=== PATIENT | female | born 2000 | race African-American/Black ===

== ENCOUNTER 2023-11-30 12:49 | Outpatient (AMB) | payer OTHER, SELFPAY ==
--- NOTE | 2023-11-30 13:59 | AM.OFFWIN_ITS ---
Intake Vital Signs 11/30/23 14:00 Height 5 ft 5 in Weight 239 lb BMI 39.8 BP 132/80 Blood Pressure Location Rt brachial Position Sitting Pulse 88 Pulse Source Pulse Oximeter Pulse Oximetry (%) 98 Oxygen Delivery Method Room Air Intake Visit Reasons: EST/bumps all over upper body(lobby) Intake Note: Pt is here c/o bumps underneath her breasts, above her breasts, bilateral armpits as well as on the groin area. Pt starts she has had this issue on and off for a few years. Pt states she was given antibiotics in High School but doesn't remember exactly what it was. Patient Tobacco Use Status: Never used Tobacco Allergies No Known Allergies Allergy (Verified 11/30/23 14:02) Medication List - Last Reconciled 11/30/23 by KENY Adams cephalexin 500 mg PO BID 10 days Do you need a note to return to daycare/school/sports/work: Yes HPI HPI Comments History of Present Illness Details 23 y/o female c/o multiple skin lesions on the inferior aspect of her breasts, and occasionally her axilla. She also has a habit of picking lesions resulting in erythema, swelling and discharge. She has been experiencing these symptoms for 5+ years, intermittently (monthly). [facility] Social History Patient Tobacco Use Status: Never used Tobacco Review of Systems Skin/Breast Reports lesions Physical Exam Vital Signs: Last Vital Signs Pulse 88 11/30/23 14:00 BP 132/80 11/30/23 14:00 Pulse Ox 98 11/30/23 14:00 Oxygen Delivery Method Room Air 11/30/23 14:00 BMI result Body Mass Index 39.8 Chest Other: lesions present in the central and inferior aspects of her right breast. Also areas of excoriation where she stated she picked Resp Effort & Inspection: normal respiratory effort Auscultation: clear to auscultation bilaterally Cardio Rate: regular rate Rhythm: regular rhythm Heart sounds: S1 normal heart sound present and S2 normal heart sound present Skin Lesions: lesion noted (inferior to right breasts and central ) Assessment & Plan Assessment & Plan (1) Abscess of skin: Code(s): L02.91 - Cutaneous abscess, unspecified Qualifiers: Site of cutaneous abscess: trunk Site of cutaneous abscess of trunk: chest wall Qualified Code(s): L02.213 - Cutaneous abscess of chest wall Plan: see plan Plan Cephalexin 500 Bid x 10 days and dermatology referral for retirement plan. F/U with PCP. Keep areas clean and use warm compresses twice daily. Orders: Referrals Dermatology Referral L02.91 - Cutaneous abscess, unspecified Medications: New cephalexin 500 mg PO BID 10 days 20 caps 0RF Coding Level of Care Code New Pt Level 3 (95109) Diagnoses Cutaneous abscess of chest wall L02.213 Site of cutaneous abscess: trunk Site of cutaneous abscess of trunk: chest wall Time Spent (min) 20
[2023-11-30 14:00] VITALS: BP 132/80; PULSE 88; O2SAT 98; BMI 39.8
== END 2023-11-30 15:01 | disposition home or self-care (01) ==
PROVIDERS: PCP Internal Medicine; Visit Provider Physician Assistant Medical
DX: L02.213 Cutaneous abscess of chest wall (principal)
CPT/HCPCS: 99204

== ENCOUNTER 2024-03-02 07:35 | Outpatient (AMB) | payer OTHER, SELFPAY ==
[2024-03-02 07:44] VITALS: BP 130/88; PULSE 96; O2SAT 99; BMI 38.6
--- NOTE | 2024-03-02 07:44 | MHC.PC.OV ---
Vital Signs 03/02/24 07:44 Height 5 ft 5 in Weight 232 lb BMI 38.6 BP 130/88 Blood Pressure Location Lt brachial Position Sitting Pulse 96 Pulse Source Pulse Oximeter Pulse Oximetry (%) 99 Oxygen Delivery Method Room Air Intake Visit Reasons: DIRECTOR OF COMPLIANCE/ Requesting PE Intake Note: Pt is here today as a New Patient PE Allergies No Known Allergies Allergy (Verified 03/02/24 07:44) Medication List - Last Reconciled 03/02/24 by Niki Zhou MD doxycycline monohydrate 100 mg PO BID Tobacco use date assessed: 03/02/24 Dental Screening Did you have a dental visit in the last 12 months?: Yes Did you have a dental problem in the last 6 months where you did not have access to dental care?: No Was dental information given to patient?: Patient has dentist HPI DIRECTOR OF COMPLIANCE/ Requesting PE HPI Details Pt presents for DIRECTOR OF COMPLIANCE PE. Patient was diagnosed with hidradenitis suppurativa and has been on 2 courses of doxycycline on and off for the last few years. [facility] Family History (Updated 03/02/24 @ 16:15 by Niki Zhou MD) Maternal Uncle Substance use disorder Paternal Uncle Substance use disorder Maternal Grandmother Mental health disorder Mother DM type 2 (diabetes mellitus, type 2) Social History (Updated 03/02/24 @ 16:16 by Niki Zhou MD) Household Members Other:: FULL-TIME STUDENT PSYCHOLOGY, same sexual partner for 3 years Housing: Apartment Patient Tobacco Use Status: Never used Tobacco e-Cigarette/Vaping Use: Never Used Current occupational status: employed Current occupation: Also a student Cognitive needs: No Hearing needs: No Vision needs: Yes Questionnaire PHQ-9 Over the last 2 weeks, how often have you been bothered by any of the following problems? 1. Little interest or pleasure in doing things: not at all 2. Feeling down, depressed, or hopeless: several days 3. Trouble falling or staying asleep, or sleeping too much: several days 4. Feeling tired or having little energy: several days 5. Poor appetite or overeating: more than half the days 6. Feeling bad about yourself - or that you are a failure or have let yourself or your family down: more than half the days 7. Trouble concentrating on things, such as reading the newspaper or watching television: more than half the days 8. Moving or speaking so slowly that other people could have noticed. Or the opposite - being so fidgety or restless that you have been moving around a lot more than usual: not at all 9. Thoughts that you would be better off or of hurting yourself in some way: not at all Total score: 9 Depression Screening Interpretation: Negative Depression Screening Done: Yes Source: Developed by Drs. Nas Last, Bettye Alcantara, Fransico Bermudez and colleagues, with an educational osvaldo from [employer]. Thrive Questionnaire Date Thrive assessed: 03/02/24 I am a: Patient What is your living situation today?: I have a steady place to live Within the past 12 months, did the food you bought not last and you didn't have the money to get more?: Sometimes True Within the past 12 months, did you worry whether your food would run out before you got money to buy more?: Never true Do you have trouble paying for medicines?: No Do you have trouble getting transportation to medical appointments?: No Do you have trouble paying your heating and electricity bill?: No Do you have trouble taking care of your child, family member or friend?: No Do you have trouble with day-to-day activities such as bathing, preparing meals, shopping, managing finances, etc.?: No Are you currently unemployed and looking for a job?: Yes Are you interested in more education?: Yes Please select the resources that you would like help with: Job search/training and Education THRIVE Score: 1 AUDIT C Alcohol Use Questionnaire (AUDIT-C) 1. How often do you have a drink containing alcohol?: Monthly or less 2. How many drinks containing alcohol do you have on a typical day when you are drinking?: 1 or 2 3. How often do you have six or more drinks on one occasion?: Never Total Score: 1 DICKSON-7 AMB Questionnaire DICKSON-7 Date DICKSON - 7 assessed: 03/02/24 Feeling nervous, anxious, or on edge: 2 = More than half the days Not being able to stop or control worryin = More than half the days Worrying too much about different things: 2 = More than half the days Trouble relaxin = Several days Being so restless that it is hard to sit still: 1 = Several days Becoming easily annoyed or irritable: 2 = More than half the days Feeling afraid as if something awful might happen: 1 = Several days Total DICKSON-7 score (0-4 normal; 5-9 mild; 10-14 moderate; 15-21 severe): 11 Source: Developed by Drs. Nas Last, Bettye Alcantara, Fransico Bermudez and colleagues, with an educational osvaldo from [employer]. Review of Systems Const All systems reviewed & are unremarkable except as noted in HPI and below Reports no additional complaints Eyes Reports no additional complaints ENT Reports no additional complaints Card Reports no additional complaints Resp Reports no additional complaints GI Reports no additional complaints Reports no additional complaints Physical exam (Primary Care) Vital Signs: Last Vital Signs Pulse 96 03/02/24 07:44 BP 140/100 H 03/02/24 07:44 Pulse Ox 99 03/02/24 07:44 Oxygen Delivery Method Room Air 03/02/24 07:44 BMI result Body Mass Index 38.6 Tobacco/Smoking Status: Tobacco use Status Tobacco use date assessed 03/02/24 03/02/24 07:51 Patient Tobacco Use Status Never used Tobacco 03/02/24 07:51 e-Cigarette/Vaping Use Never Used 03/02/24 07:51 PHQ-9: PHQ-9 Score PHQ-9: Total score 9 03/02/24 08:37 Depression Screening Interpretation: Negative Thrive Assessment: Date of Thrive Assessment Date Thrive assessed 03/02/24 03/02/24 08:37 Const General: no acute distress HENMT Head: Yes normal to inspection General nose exam: Normal external nose present Throat: Yes posterior oropharynx normal Eyes General: appearance normal, both eyes and all related structures Resp Effort & Inspection: normal respiratory effort Auscultation: clear to auscultation bilaterally Cardio Rhythm: regular rhythm Heart sounds: S1 normal heart sound present and S2 normal heart sound present GI Inspection: Yes normal to inspection Palpation (GI): Soft to palpation Percussion: Yes normal to percussion Auscultation: normal bowel sounds Skin Other: Multiple scarring and discoloration on both breast and axilla region Assessment and Plan Assessment & Plan (1) Annual physical exam: Code(s): Z00.00 - Encounter for general adult medical examination without abnormal findings Plan: Well-balanced diet regular exercise weight loss discussed with the patient she will return for fasting blood work. (2) Hidradenitis suppurativa: Code(s): L73.2 - Hidradenitis suppurativa Plan: Preventive measurement including using antibacterial body wash with salicylic acid discussed with the patient she will be referred to technology auditor (3) Elevated blood pressure reading in office without diagnosis of hypertension: Code(s): R03.0 - Elevated blood-pressure reading, without diagnosis of hypertension Plan: Low-sodium diet regular physical activity weight loss discussed with the patient follow-up in 2 months Orders: Orders Comprehensive [place]. Panel Fast Today Z00.00 - Encounter for general adult medical examination without abnormal findings Lipid Panel Today Z00.00 - Encounter for general adult medical examination without abnormal findings TSH reflex Free T4 Today Z00.00 - Encounter for general adult medical examination without abnormal findings UA w Microscopic Today Z00.00 - Encounter for general adult medical examination without abnormal findings HIV Ab/Ag Today Z00.00 - Encounter for general adult medical examination without abnormal findings Syphilis Screen Today Z00.00 - Encounter for general adult medical examination without abnormal findings Complete Blood Count Auto Diff Today Z00.00 - Encounter for general adult medical examination without abnormal findings CT NG by PCR Today Z00.00 - Encounter for general adult medical examination without abnormal findings Referrals Dermatology Referral L73.2 - Hidradenitis suppurativa Coding Level of Care Code New Pt Prev Care 18-39yr([id number] Diagnoses Annual physical exam Z00.00 Hidradenitis suppurativa L73.2 Elevated blood pressure reading in office without diagnosis of hypertension R03.0
== END 2024-03-02 16:13 | disposition home or self-care (01) ==
PROVIDERS: PCP Internal Medicine; Visit Provider Internal Medicine
DX: Z00.00 Encounter for general adult medical examination without abnormal findings (principal); L73.2 Hidradenitis suppurativa; R03.0 Elevated blood-pressure reading, without diagnosis of hypertension
CPT/HCPCS: 99385

== ENCOUNTER 2024-03-02 08:39 | Outpatient (REF) | payer OTHER, SELFPAY ==
[2024-03-02 10:22] LABS: MANUAL DIFF FLAG NO
[2024-03-02 10:28] LABS: Appearance Urine Clear; Color Urine Yellow; Glucose Urine UA Negative (Negative); Leukocyte Esterase Urine Negative (Negative); Nitrite Urine Negative (Negative); Specific Gravity - Urine 1.025 (1.005-1.025); Urine Blood Negative (Negative); Urine Ketones Negative (Negative); Urine Protein Trace mg/dL (Neg-Trace)
[2024-03-02 10:30] LABS: Basophils Absolute Auto 0.1 X10*3/uL (0.0-0.2); Basophils Percent Auto 0.6 % (0-2); Eosinophils Absolute Auto 0.3 X10*3/uL (0.0-0.4); Eosinophils Percent Auto 2.8 % (0-4); Hematocrit 38.4 % (37.0-47.0); Imm Gran Abs Auto 0.04 X10*3/uL (0.00-0.03); Imm Gran Pct Auto 0.4 % (0.0-0.4); Lymphocytes Absolute Auto 2.5 X10*3/uL (1.2-4.9); Lymphocytes Percent Auto 22.9 % (20-40); Mean Corpuscular HGB Conc 31.3 g/dl (31.0-35.0); Mean Corpuscular Hemoglobin 24.7 pg (27.0-33.0); Mean Platelet Volume 10.4 fL (9.4-12.3); Monocytes Absolute Auto 0.8 X10*3/uL (0.1-1.2); Monocytes Percent Auto 7.3 % (2-11); Neutrophils Absolute Auto 7.1 x10*3/uL (2.0-8.3); Platelet Count 406 X10*3/uL (160-400); Red Blood Count 4.86 X10*6/uL (4.20-5.50); Red Cell Distribution Width 13.9 % (11.0-16.0); White Blood Count 10.8 X10*3/uL (4.8-10.8)
[2024-03-02 10:32] LABS: Bacteria Urine None Seen (None Seen); Hyaline Casts Urine 0-2 /LPF (0-2); RBC Urine 0-2 /HPF (0-2); WBC Urine 0-5 /HPF (0-5)
[2024-03-02 11:00] LABS: Alanine Aminotransferase 14 U/L (0-31); Albumin Level 4.3 g/dL (3.5-5.0); Alkaline Phosphatase 83 U/L (39-117); Anion Gap 15 (12-20); Aspartate Amino Transferase 15 U/L (5-31); Bilirubin Total 0.5 mg/dL (0.0-1.0); Blood Urea Nitrogen 11 mg/dL (9-16); Calcium 9.9 mg/dL (8.4-10.2); Carbon Dioxide 21 mmol/L (22-29); Chloride 107 mmol/L (96-108); Cholesterol 153 mg/dL (<200); Estimated Glomerular Filt Rate > 60; Glucose Fasting 91 mg/dL (60-99); HDL Cholesterol 42 mg/dL (>40); LDL Cholesterol Calculated 97 mg/dL (<100); Potassium 3.7 mmol/L (3.3-5.1); Sodium 139 mmol/L (135-145); Triglycerides 70 mg/dL (<150)
[2024-03-02 11:05] LABS: Syphilis Screen Nonreactive (Nonreactive); TSH reflex Free T4 1.72 uIU/mL (0.32-4.0)
[2024-03-02 11:06] LABS: HIV AB/AG Nonreactive (Nonreactive); HIV Num 1 0.04 S/CO (0.00-0.99)
[2024-03-02 15:17] LABS: CT PCR NOT DETECTED (Not Detect.); NG PCR NOT DETECTED (Not Detect.)
== END 2024-03-02 08:40 | disposition home or self-care (01) ==
LOC: HO.HMGCLDS 08:39
PROVIDERS: PCP Internal Medicine; Visit Provider Internal Medicine
DX: Z00.00 Encounter for general adult medical examination without abnormal findings (principal)
CPT/HCPCS: 0353U; 80053; 80061; 81001; 84443; 85025; 86780; 87389

== ENCOUNTER 2024-04-19 13:35 | Outpatient (AMB) | payer OTHER, SELFPAY ==
[2024-04-19 13:36] VITALS: BP 138/88; PULSE 87; O2SAT 99; BMI 38.1
--- NOTE | 2024-04-19 13:36 | MHC.PC.OV ---
Vital Signs 04/19/24 13:36 Height 5 ft 5 in Weight 229 lb BMI 38.1 BP 138/88 Blood Pressure Location Rt brachial Position Sitting Pulse 87 Pulse Source Pulse Oximeter Pulse Oximetry (%) 99 Oxygen Delivery Method Room Air Intake Visit Reasons: 1 Month Follow up Intake Note: Pt is here today for 1 month follow up visit. Allergies No Known Allergies Allergy (Verified 04/19/24 13:40) Medication List - Last Reconciled 04/19/24 by Niki Zhou MD No Known Home Meds Tobacco use date assessed: 04/19/24 Dental Screening Dental Screen Date: 04/19/24 Did you have a dental visit in the last 12 months?: Yes Did you have a dental problem in the last 6 months where you did not have access to dental care?: No Was dental information given to patient?: Patient has dentist HPI 1 Month Follow up HPI Details Patient presents for the follow-up. She has been exercising , density at least twice a week and eating well-balanced diet. Patient lost 10 lb since November. [facility] Surgical History No pertinent past surgical history Family History Maternal Uncle Substance use disorder Paternal Uncle Substance use disorder Maternal Grandmother Mental health disorder Mother DM type 2 (diabetes mellitus, type 2) Social History Household Members Other:: FULL-TIME STUDENT PSYCHOLOGY, same sexual partner for 3 years Housing: Apartment Patient Tobacco Use Status: Never used Tobacco e-Cigarette/Vaping Use: Never Used service: No Current occupational status: employed Current occupation: Also a student Cognitive needs: No Hearing needs: No Vision needs: Yes Questionnaire Thrive Questionnaire Date Thrive assessed: 03/02/24 AUDIT C Alcohol Use Questionnaire (AUDIT-C) 1. How often do you have a drink containing alcohol?: Monthly or less 2. How many drinks containing alcohol do you have on a typical day when you are drinking?: 1 or 2 3. How often do you have six or more drinks on one occasion?: Never Total Score: 1 DICKSON-7 AMB Questionnaire DICKSON-7 Date DICKSON - 7 assessed: 03/02/24 Source: Developed by Bettye Harris B.W. Quinton, Fransico Bermudez and colleagues, with an educational osvaldo from [employer]. Review of Systems Const All systems reviewed & are unremarkable except as noted in HPI and below Eyes Reports no additional complaints ENT Reports no additional complaints Card Reports no additional complaints Resp Reports no additional complaints GI Reports no additional complaints Reports no additional complaints Physical exam (Primary Care) Vital Signs: Last Vital Signs Pulse 87 04/19/24 13:36 Pulse Ox 99 04/19/24 13:36 Oxygen Delivery Method Room Air 04/19/24 13:36 BMI result Body Mass Index 38.1 Tobacco/Smoking Status: Tobacco use Status Tobacco use date assessed 04/19/24 04/19/24 13:44 Patient Tobacco Use Status Never used Tobacco 04/19/24 13:37 e-Cigarette/Vaping Use Never Used 04/19/24 13:37 Thrive Assessment: Date of Thrive Assessment Date Thrive assessed 03/02/24 04/19/24 13:37 Const General: no acute distress HENMT Head: Yes normal to inspection Neck Neck: Yes supple Resp Effort & Inspection: normal respiratory effort Auscultation: clear to auscultation bilaterally Cardio Rhythm: regular rhythm Heart sounds: S1 normal heart sound present and S2 normal heart sound present Assessment and Plan Assessment & Plan (1) Elevated blood pressure reading in office without diagnosis of hypertension: Code(s): R03.0 - Elevated blood-pressure reading, without diagnosis of hypertension Plan: Continue low-sodium diet increase physical activity weight loss discussed with the patient. Renal Doppler will be obtained to RO renal artery stenosis and 24 hour urine collection for cortisone catecholamines and metanephrines will be obtained. Follow-up in 6 weeks (2) Annual physical exam: Code(s): Z00.00 - Encounter for general adult medical examination without abnormal findings Orders: Orders Aldost/Renin Today R03.0 - Elevated blood-pressure reading, without diagnosis of hypertension, Z00.00 - Encounter for general adult medical examination without abnormal findings Aldosterone Today R03.0 - Elevated blood-pressure reading, without diagnosis of hypertension, Z00.00 - Encounter for general adult medical examination without abnormal findings Renin Today R03.0 - Elevated blood-pressure reading, without diagnosis of hypertension, Z00.00 - Encounter for general adult medical examination without abnormal findings Metanephrines, 24hr Urine Today R03.0 - Elevated blood-pressure reading, without diagnosis of hypertension, Z00.00 - Encounter for general adult medical examination without abnormal findings Cortisol, Free 24Hr Urine Today R03.0 - Elevated blood-pressure reading, without diagnosis of hypertension, Z00.00 - Encounter for general adult medical examination without abnormal findings US renal doppler Today R03.0 - Elevated blood-pressure reading, without diagnosis of hypertension, Z00.00 - Encounter for general adult medical examination without abnormal findings Catecholamines, Frac., 24Ur Today R03.0 - Elevated blood-pressure reading, without diagnosis of hypertension Coding Level of Care Code Est Pt Level 3 (56852) Diagnoses Elevated blood pressure reading in office without diagnosis of hypertension R03.0 Annual physical exam Z00.00
== END 2024-04-19 14:21 | disposition home or self-care (01) ==
PROVIDERS: PCP Internal Medicine; Visit Provider Internal Medicine
DX: R03.0 Elevated blood-pressure reading, without diagnosis of hypertension (principal); Z00.00 Encounter for general adult medical examination without abnormal findings
CPT/HCPCS: 99213

== ENCOUNTER 2024-04-19 14:23 | Outpatient (REF) | payer OTHER, SELFPAY ==
[2024-04-25 15:12] LABS: Aldosterone/Renin Ratio 46.2 Ratio (0.9-28.9); Plasma Renin Activity 0.13 ng/mL/h (0.25-5.82)
[2024-04-27 12:03] LABS: Renin 0.16 ng/mL/h (0.25-5.82)
== END 2024-04-19 14:24 | disposition home or self-care (01) ==
LOC: HO.HMGCLDS 14:23
PROVIDERS: PCP Internal Medicine; Visit Provider Internal Medicine
DX: Z00.00 Encounter for general adult medical examination without abnormal findings (principal); R03.0 Elevated blood-pressure reading, without diagnosis of hypertension
CPT/HCPCS: 36415; 82088; 84244

== ENCOUNTER 2024-10-10 11:57 | Outpatient (REF) | payer SELFPAY ==
--- NOTE | ~2024-10-10 | XR_ITS ---
EXAMINATION: XR KNEE, RIGHT CLINICAL INFORMATION: Right knee pain. COMPARISON: None available. TECHNIQUE: Four views of the right knee. FINDINGS: No acute fracture or dislocation. No joint space narrowing or marginal osteophytes. No osseous erosion. No abnormal soft tissue calcification. XR/XR knee RT 4V IMPRESSION: Unremarkable examination. Electronically signed by: Richard Lucia MD 10/10/2024 04:30 PM EST
== END 2024-10-10 11:58 | disposition home or self-care (01) ==
LOC: HO.HMGCX 11:57
PROVIDERS: PCP Internal Medicine; Visit Provider Physician Assistant
DX: M25.561 Pain in right knee (principal)
CPT/HCPCS: 73564

== ENCOUNTER 2024-10-10 11:57 | Outpatient (AMB) | payer OTHER, SELFPAY ==
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
[2024-10-10 12:47] VITALS: BP 130/90; PULSE 103; O2SAT 100
== END 2024-10-10 13:30 | disposition home or self-care (01) ==
PROVIDERS: PCP Internal Medicine; Visit Provider Physician Assistant
DX: M25.561 Pain in right knee (principal); V89.2XXA Person injured in unspecified motor-vehicle accident, traffic, initial encounter; S06.0X0A Concussion without loss of consciousness, initial encounter

== ENCOUNTER 2024-10-27 13:01 | Outpatient (AMB) | payer OTHER, SELFPAY ==
[2024-10-27 13:33] VITALS: BP 118/78; PULSE 63; O2SAT 99; BMI 37.1
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
== END 2024-10-27 14:12 | disposition home or self-care (01) ==
PROVIDERS: PCP Internal Medicine; Visit Provider Internal Medicine
DX: S89.91XA Unspecified injury of right lower leg, initial encounter (principal); V89.2XXA Person injured in unspecified motor-vehicle accident, traffic, initial encounter; Z04.3 Encounter for examination and observation following other accident

== ENCOUNTER → 2024-10-27 13:01 | Outpatient (BNVA) | payer OTHER, SELFPAY | PROVIDERS: PCP Internal Medicine; Visit Provider Internal Medicine | DX: S89.91XA Unspecified injury of right lower leg, initial encounter (principal); V89.2XXA Person injured in unspecified motor-vehicle accident, traffic, initial encounter; Y93.9 Activity, unspecified; Y92.9 Unspecified place or not applicable; Y99.9 Unspecified external cause status | CPT/HCPCS: 96127 ==

== ENCOUNTER 2024-11-16 13:00 | Outpatient (RCR) | payer OTHER, SELFPAY ==
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
--- NOTE | 2024-12-16 07:37 | MHC.PT.DC ---
[facility] [place] Office [place] Office [place] Office [address] [phone] F: [phone] F: [phone] F: [phone] F: [phone] Physical Therapy Discharge Report Diagnosis: pain in R knee Date of Surgery: Date of Evaluation: 10/24/24 Date of Discharge: 12/16/24 Treatments to Date: 6 Cancellations to Date: 4 No Shows to Date: 0 Discharge Status: Improved Function Independent with HEP Discharge Summary: Pt has made good progress and has no pain with exercises. She was able to tolerate standing for prolonged periods and walk without increase in pain. She still has a raised area but it is no longer tender to palpate. She did not f/u with final visit and will now d/c chart. Electronically signed by: Willow Navarrete PT Please sign and return to therapist. Thank you for your referral.
== END 2024-12-16 07:38 | disposition home or self-care (01) ==
LOC: HO.PTCHIC 13:00
PROVIDERS: PCP Internal Medicine; Visit Provider Internal Medicine
DX: M25.561 Pain in right knee (principal)
CPT/HCPCS: 97110; 97112; 97140; 97161; 97530

== ENCOUNTER → 2025-03-08 13:42 | Outpatient (BNVA) | payer OTHER, SELFPAY | PROVIDERS: PCP Internal Medicine; Visit Provider Internal Medicine | DX: Z13.89 Encounter for screening for other disorder (principal) ==